=== PATIENT | female | born 1970 | race Caucasian/White ===

== ENCOUNTER 2022-04-15 09:36 | Outpatient (CLI) | payer BC, SELFPAY | END 2022-04-15 09:37 | disposition home or self-care (01) | LOC: OP CLINIC 09:37 | PROVIDERS: PCP Physician Assistant Medical; Visit Provider Surgery | DX: Z12.11 Encounter for screening for malignant neoplasm of colon (principal); K62.1 Rectal polyp; K64.4 Residual hemorrhoidal skin tags; Z83.71 Family history of colonic polyps | CPT/HCPCS: 45385; 88305; 99153; J2250; J3010 ==

== ENCOUNTER 2022-05-14 12:50 | Outpatient (CLI) | payer BC, SELFPAY ==
[2022-05-14 22:22] LABS: Albumin* 4.3 g/dL (3.3-5.0)
[2022-05-14 22:23] LABS: Chloride* 106 mmol/L (96-114); Potassium* 4.4 mmol/L (3.6-5.1); Sodium* 138 mmol/L (135-149)
[2022-05-14 22:25] LABS: Bilirubin Total* 0.4 mg/dL (0.1-1.5); Carbon Dioxide* 25 mmol/L (20-32); Cholesterol* 177 mg/dL (90-199); Creatinine* 0.6 mg/dL (0.5-1.5); Estimated Glomerular Filt Rate 109 ml/min; Total Protein* 6.7 g/dL (6.0-8.3)
[2022-05-14 22:26] LABS: Alanine Aminotransferase* 18 U/L (4-35); Alkaline Phosphatase* 85 U/L (40-150); Aspartate Amino Transferase* 22 U/L (12-35); Blood Urea Nitrogen* 12 mg/dL (7-30); Glucose* 87 mg/dL (60-115); HDL Cholesterol* 54 mg/dL (>=50); LDL Cholesterol Calculated 74 mg/dL (<100); Triglycerides* 246 mg/dL (40-149)
== END 2022-05-14 12:51 | disposition home or self-care (01) ==
PROVIDERS: PCP Physician Assistant Medical; Visit Provider Physician Assistant Medical
DX: R55 Syncope and collapse (principal)
CPT/HCPCS: 80053; 80061; 84443

== ENCOUNTER 2022-05-24 08:10 | Outpatient (CLI) | payer BC, SELFPAY ==
--- NOTE | 2022-05-24 08:15 | CRLHL7_ITS ---
For Patients: As a result of the Century Cures Act, medical imaging exams and procedure reports are released immediately into your electronic medical record. You may view this report before your referring provider. If you have questions, please contact your health care provider. CLINICAL HISTORY: Syncope TECHNIQUE: The carotid circulations and the vertebral arteries in the neck were examined with adhikari-scale ultrasound, color-flow and Doppler spectral analysis. Degrees of stenosis were determined using SRU 2002 Consensus Panel Criteria. FINDINGS: Sonographic images demonstrate mild bilateral atherosclerotic plaque formation without suspicious soft tissue mass. There was antegrade blood flow demonstrated within the vertebral arteries and the subclavian arteries demonstrated a normal triphasic waveform. The spectral Doppler tracings of the common carotid, internal and external carotid arteries demonstrate no abnormal turbulence or spectral broadening. There was no significant elevation of peak systolic blood flow which would indicate a hemodynamically-significant stenosis by SRU criteria. The ICA/CCA peak systolic velocity ratio measures 1.1 on the right and 1.0 on the left. IMPRESSION: Normal carotid ultrasound. Less than 50 percent stenosis of the internal carotid arteries bilaterally. Dictated by iRck Deleon MD @ 05/24/2022 10:34:23 AM (Electronically Signed)
--- NOTE | 2022-05-24 10:00 | CRLHL7_ITS ---
For Patients: As a result of the Century Cures Act, medical imaging exams and procedure reports are released immediately into your electronic medical record. You may view this report before your referring provider. If you have questions, please contact your health care provider. INDICATION: Syncopal episode, right sided weakness COMPARISON: none TECHNIQUE: A CT volumetric acquisition was performed of the brain without IV contrast. Please note that all CT scans at this facility use dose modulation, iterative reconstruction, and/or weight-based dosing when appropriate to reduce radiation dose to as low as reasonably achievable. FINDINGS: The CT images reveal a normal appearance of the cerebral ventricles and basal cisterns. There is no evidence of intracranial hemorrhage, tissue infarction or mass effect. The mastoid air cells and middle ear cavities are clear. The calvarium appears intact. There is normal aeration of the visualized paranasal sinuses. IMPRESSION: Negative head CT. Please note that all CT scans at this facility use dose modulation, iterative reconstruction, and/or weight-based dosing when appropriate to reduce radiation dose to as low as reasonably achievable. Dictated by Rick Deleon MD @ 05/24/2022 10:40:52 AM (Electronically Signed)
== END 2022-05-24 08:11 | disposition home or self-care (01) ==
LOC: US 08:10
PROVIDERS: PCP Physician Assistant Medical; Visit Provider Physician Assistant Medical
DX: R55 Syncope and collapse (principal); I34.0 Nonrheumatic mitral (valve) insufficiency; I31.39 Other pericardial effusion (noninflammatory)
CPT/HCPCS: 70450; 93306; 93880

== ENCOUNTER 2022-07-10 13:45 | Emergency (ER) | payer BC, SELFPAY ==
[2022-07-10 13:53] VITALS: BP 130/59; PULSE 67; RESP 20; TEMP 36.8; O2SAT 95; BMI 35.0
--- NOTE | 2022-07-10 14:22 | CRLHL7_ITS ---
For Patients: As a result of the Century Cures Act, medical imaging exams and procedure reports are released immediately into your electronic medical record. You may view this report before your referring provider. If you have questions, please contact your health care provider. INDICATION: Left flank pain TECHNIQUE: Axial images were obtained from the diaphragm to the pubic symphysis. Reformats were obtained in the coronal and sagittal plane. IV Contrast: None Oral Contrast: None COMPARISON: Abdomen and pelvis CT 03/20/2015 FINDINGS: Lower chest: Unremarkable. Liver: Unremarkable. Normal in size and attenuation. No masses. Gallbladder and bile ducts: Unremarkable. No stones or inflammation. No biliary dilatation. Spleen: Unremarkable. Normal in size without mass. Pancreas: Unremarkable. No mass or inflammation. Adrenal glands: Unremarkable. No nodules. Kidneys: Unremarkable. No masses, stones, or hydronephrosis. Exophytic cyst lateral aspect left kidney measuring 9 millimeters. Vasculature: Unremarkable. GI tract: The stomach is unremarkable. No dilated loops of large or small intestine. Appendix unremarkable. Pelvis: Status post hysterectomy. Phleboliths in the pelvis. Left ovarian cyst measuring 15 millimeters. Bones: Unremarkable for age. IMPRESSION: 1. No evidence of nephrolithiasis or hydronephrosis. 2. No dilated bowel or localized inflammation. 3. Status post hysterectomy with left ovarian cyst measuring 15 millimeters. Please note that all CT scans at this facility use dose modulation, iterative reconstruction, and/or weight-based dosing when appropriate to reduce radiation dose to as low as reasonably achievable. Dictated by Noel Castrejon MD @ 07/10/2022 3:30:15 PM (Electronically Signed)
--- NOTE | 2022-07-10 14:23 | ED.GENADULT ---
HPI - General Adult General Time Seen by Provider: 14: Date Seen: 07/10/22 Chief complaint: Flank Pain Stated complaint: Kidney Stone Time Seen by Provider: 07/10/22 13:50 Source: patient Mode of arrival: ambulatory Limitations: no limitations History of Present Illness HPI narrative: Patient is a 52 year white female has had history of kidney stones before, carries Flomax with her and took some but it has not resolved over a couple of days she has got left flank pain that radiates around her left groin. Typically she passes stones quite rapidly. She has had a couple of scans in the past none recently. Patient denies hematuria denies rigors or chills. She has had pain for several days and just does not seem to be moving or changing. She presents to ER for evaluation of this, feeling similar to kidney stones in the past. No chest pain or breathing problem no fevers rigors dysuria for hematuria. Related Data Home Medications Medication Instructions Recorded Confirmed fexofenadine 180 mg tablet 180 mg feeding tube QDAY 02/28/22 05/14/22 (Allergy Relief (fexofenadine)) tamsulosin 0.4 mg capsule 0.4 mg PO QDAY 02/28/22 05/14/22 latanoprostene bunod 0.024 % eye 1 drp ophthalmic (eye) QDAY 05/14/22 05/14/22 drops (Vyzulta) Previous Rx's Medication Instructions Recorded rosuvastatin 20 mg tablet 20 mg PO QDAY #90 tabs 03/01/22 sertraline 100 mg tablet 200 mg PO QDAY #180 tabs 03/01/22 azithromycin 250 mg tablet 250 mg PO 3XW #36 tabs 04/17/22 triamcinolone acetonide 0.025 % See Rx Instructions .Route 07/02/22 topical cream .COMPLEX #80 grams Allergies Allergy/AdvReac Type Severity Reaction Status Date / Time latex Allergy Intermediate Hives Verified 07/10/22 13:53 Sulfa (Sulfonamide Allergy Intermediate Hives Verified 07/10/22 13:53 Antibiotics) Review of Systems Status of ROS: Reports: 6 or more systems reviewed and unremarkable except as noted in History and below PFSH PFSH Medical History Calculus of kidney Normal stress echocardiography Urticaria Surgical History History of nasal septoplasty History of tonsillectomy History of total vaginal hysterectomy (TVH) History of tubal ligation Family History Mother Coronary artery disease Diabetes Breast cancer Social History Narrative: does not drink or do illicit drugs, former smoker Smoking Status: Never smoker Do you use any of these nicotine containing products: E-Cigarettes Second hand tobacco smoke exposure: Yes How often do you have a drink containing alcohol: never How often do you have six or more drinks on one occasion: Never AUDIT-C Alcohol total score: 0 Non-prescribed substance use: denies use Little interest or pleasure in doing things: not at all Feeling down, depressed, or hopeless: not at all service: No Exam Narrative: Exam Narrative: Objective vital signs as recorded In no apparent distress HEENT remarkable pulse regular abdomen benign soft negative CVA tenderness Extremities are no edema Neurologic nonfocal Const: Vital Signs, click to edit/add: Vital Signs - 24 hr 07/10/22 13:53 Temperature 98.2 F Pulse Rate [Pulse Oximeter] 67 Respiratory Rate 20 Blood Pressure [Le ft Forearm] 130/59 L Pulse Oximetry 95 Oxygen Delivery Me thod Room Air Course Vital Signs Vital signs: Initial Vital Signs Temperature 98.2 F 07/10/22 13:53 Temperature Source Temporal Artery Scan 07/10/22 13:53 Pulse Rate 67 07/10/22 13:53 Pulse Rhythm 07/10/22 13:53 Respiratory Rate 20 07/10/22 13:53 Blood Pressure 130/59 L 07/10/22 13:53 Blood Pressure Mean 82 07/10/22 13:53 Blood Pressure Position Supine 07/10/22 13:53 Pulse Oximetry 95 07/10/22 13:53 Oxygen Delivery Method 07/10/22 13:53 Vital Signs Temperature 98.2 F 07/10/22 13:53 Pulse Rate 67 07/10/22 13:53 Respiratory Rate 20 07/10/22 13:53 Blood Pressure 130/59 L 07/10/22 13:53 Pulse Oximetry 95 07/10/22 13:53 Oxygen Delivery Method 07/10/22 13:53 Temperature 98.2 F 07/10/22 13:53 Pulse Rate 67 07/10/22 13:53 Respiratory Rate 20 07/10/22 13:53 Blood Pressure 130/59 L 07/10/22 13:53 Pulse Oximetry 95 07/10/22 13:53 Oxygen Delivery Method 07/10/22 13:53 Medical Decision Making MDM Narrative Medical decision making narrative: Patient is a 52-year-old female has had kidney stones in the past. She has not had these analyzed in the past. She typically passes in quite rapidly. The patient at this point has not passed out for several days. I think this point a CT scan to check the size of the kidney stone location will be appropriate, rule out other intra-abdominal pathology such as diverticulitis or other issue. Would also give IV Toradol, IV fluid, check labs and urinalysis. Disposition pending CT scan finding and clinical status. Addendum: Patient has a left ovarian cyst, no other findings, no kidney stone. Patient has reassuring urinalysis, labs look reassuring. At this point she certainly could have some discomfort from the ovarian cyst, but she would like to try just Tylenol and Advil at home I think that is reasonable. Would recommend a follow-up ultrasound within the next 4-6 weeks of her left ovarian cyst. She has had a hysterectomy as mention. No other findings on the CT. Return if worsening problems or concerns, she was comfortable plan. Lab Data Labs: Lab Results 07/10/22 07/10/22 07/10/22 Range/Units 14:22 14:45 14:45 WBC 8.28 (4.50-11.00) K/uL RBC 4.72 (4.00-5.20) m/uL Hgb 14.6 (12.0-16.0) gm/dL Hct 41.7 (33.0-51.0) % MCV 88 (80-100) fL MCH 31 (26-34) pg MCHC 35 (32-36) gm/dL RDW Coeff of [place] 11.8 (11.5-15.5) % Plt Count 252 (140-440) K/uL Neut % (Auto) 66.3 (42.0-72.0) % Lymph % (Auto) 25.6 (20-44) % [place] % (Auto) 5.3 (0.0-11.0) % Eos % (Auto) 1.8 (0.0-7.0) % Baso % (Auto) 0.4 (0.0-3.0) % Neut # (Auto) 5.49 (1.7-7.0) K/uL Lymph # (Auto) 2.12 (0.90-2.90) K/uL [place] # (Auto) 0.40 (0.00-0.90) K/UL Eos # (Auto) 0.15 (0.00-0.50) K/uL Baso # (Auto) 0.03 (0.00-0.30) K/uL Sodium 136 (135-149) mmol/L Potassium 4.1 (3.6-5.1) mmol/L Chloride 106 (96-114) mmol/L Carbon Dioxide 24 (20-32) mmol/L BUN 10 (7-30) mg/dL Creatinine 0.5 (0.5-1.5) mg/dL Estimated Creat Clear 132.77 Estimated GFR 113 ml/min Glucose 99 (60-115) mg/dL Calcium 9.1 (8.4-10.6) mg/dL Total Bilirubin 0.7 (0.1-1.5) mg/dL Direct Bilirubin 0.1 (0.0-0.5) mg/dL AST 25 (12-35) U/L ALT 22 (4-35) U/L Alkaline Phosphatase 74 (40-150) U/L C-Reactive Protein 0.8 (0.5-1.0) mg/dL Total Protein 7.4 (6.0-8.3) g/dL Albumin 4.5 (3.3-5.0) g/dL Urine Color Yellow (Yellow) Urine Appearance Clear (Clear) Urine pH 7.0 (5.0-8.5) Ur Specific [place] 1.015 (1.000-1.030) Urine Protein Negative (Negative) Urine Glucose (UA) Negative (Negative) Urine Ketones Negative (Negative) Urine Blood Trace-intact A (Negative) Urine Nitrite Negative (Negative) Urine Bilirubin Negative (Negative) Urine Urobilinogen 0.2 (0.2-1.0) Ur Leukocyte Esterase Negative (Negative) Urine RBC 0-2 (0-2) Urine WBC 0-2 (0-5) Ur Squamous Epith Cells Few (None-Few) Urine Bacteria Few A (None) Discharge Plan Discharge Clinical Impression: Acute left flank pain, Cyst of left ovary Patient Disposition: Home w/ Parent or Adult Condition: Stable Additional Instructions: Light activity, Tylenol Advil as needed, recheck with primary care doctor get a pelvic ultrasound follow-up the left ovarian cyst within the next 4-6 weeks. Activity Level: Light activity Discharge Diet: Regular Prescriptions: No Action sertraline 100 mg tablet 200 mg PO QDAY Qty: 180 3RF rosuvastatin 20 mg tablet 20 mg PO QDAY Qty: 90 1RF tamsulosin 0.4 mg capsule 0.4 mg PO QDAY fexofenadine [Allergy Relief (fexofenadine)] 180 mg tablet 180 mg feeding tube QDAY Vyzulta 0.024 % drops 1 drp ophthalmic (eye) QDAY azithromycin 250 mg tablet 250 mg PO 3XW Qty: 36 2RF triamcinolone acetonide 0.025 % cream See Rx Instructions .ROUTE .COMPLEX Qty: 80 0RF Dose Instruction: APPLY TO AFFECTED AREA TOPICALLY THREE TIMES A DAY Rx Instructions: APPLY TO AFFECTED AREA TOPICALLY THREE TIMES A DAY Follow Up/Referrals: John Bui PA-C [Primary Care Provider] - Stand Alone Forms: [employer] Info Instructions
[2022-07-10] MEDS: KETOROLAC 30 MG/ML inj IVP (14:49)
[2022-07-10 15:01] LABS: Basophils Absolute Auto 0.03 K/uL (0.00-0.30); Basophils Percent Auto 0.4 % (0.0-3.0); Eosinophils Absolute Auto 0.15 K/uL (0.00-0.50); Eosinophils Percent Auto 1.8 % (0.0-7.0); Hematocrit 41.7 % (33.0-51.0); Hemoglobin* 14.6 gm/dL (12.0-16.0); Immature Granulocytes Abs Auto 0.05 K/uL (0.00-0.30); Immature Granulocytes Pct Auto 0.6 %; Lymphocytes Absolute Auto 2.12 K/uL (0.90-2.90); Lymphocytes Percent Auto 25.6 % (20-44); Mean Corpuscular HGB Conc 35 gm/dL (32-36); Mean Corpuscular Hemoglobin 31 pg (26-34); Mean Corpuscular Volume 88 fL (80-100); Monocytes Percent Auto 5.3 % (0.0-11.0); Neutrophils Absolute Auto 5.49 K/uL (1.7-7.0); Neutrophils Percent Auto 66.3 % (42.0-72.0); Platelet Count* 252 K/uL (140-440); RDW Coefficient of Variation % 11.8 % (11.5-15.5); Red Blood Count 4.72 m/uL (4.00-5.20); White Blood Count* 8.28 K/uL (4.50-11.00)
[2022-07-10 15:02] LABS: Appearance Urine Clear (Clear); Bilirubin Urine Negative (Negative); Blood Urine Trace-intact (Negative); Color Urine Yellow (Yellow); Glucose Urine Negative (Negative); Ketones Urine Negative (Negative); Leukocyte Esterase Urine Negative (Negative); Nitrite Urine Negative (Negative); Protein Urine Negative (Negative); Specific Gravity Urine 1.015 (1.000-1.030); Urobilinogen Urine 0.2 (0.2-1.0)
[2022-07-10 15:07] LABS: Slide Review Reflex No
[2022-07-10 15:13] LABS: Albumin* 4.5 g/dL (3.3-5.0); Chloride* 106 mmol/L (96-114)
[2022-07-10 15:14] LABS: Potassium* 4.1 mmol/L (3.6-5.1); Sodium* 136 mmol/L (135-149)
[2022-07-10 15:16] LABS: Alkaline Phosphatase* 74 U/L (40-150); Aspartate Amino Transferase* 25 U/L (12-35); Bilirubin Direct* 0.1 mg/dL (0.0-0.5); Bilirubin Total* 0.7 mg/dL (0.1-1.5); Blood Urea Nitrogen* 10 mg/dL (7-30); Carbon Dioxide* 24 mmol/L (20-32); Creatinine* 0.5 mg/dL (0.5-1.5); Est. Creatinine Clearance* 132.77; Estimated Glomerular Filt Rate 113 ml/min; Total Protein* 7.4 g/dL (6.0-8.3)
[2022-07-10 15:17] LABS: Alanine Aminotransferase* 22 U/L (4-35); Calcium* 9.1 mg/dL (8.4-10.6); Glucose* 99 mg/dL (60-115)
[2022-07-10] MEDS: 0.9 % SODIUM CHLORIDE 1000 ml 1,000 ML 6000 ML IV (15:17)
[2022-07-10 15:19] LABS: C Reactive Protein* 0.8 mg/dL (0.5-1.0)
[2022-07-10 15:26] LABS: Bacteria Urine Few; RBC Urine 0-2 (0-2); Squamous Epithelial Cell Urine Few (None-Few); WBC Urine 0-2 (0-5)
== END 2022-07-10 15:51 | disposition home or self-care (01) ==
PROVIDERS: Emergency Provider Family Medicine; PCP Physician Assistant Medical
DX: R10.9 Unspecified abdominal pain (principal); N83.202 Unspecified ovarian cyst, left side
CPT/HCPCS: 36415; 74176; 80048; 80076; 81001; 85025; 86140; 87086; 96374; 99284; J1885; J7030

== ENCOUNTER 2022-07-12 10:21 | Emergency (ER) | payer BC, SELFPAY ==
[2022-07-12] VITALS (17 sets, daily range): BP systolic 115–139; BP diastolic 59–78; PULSE 50–66; RESP 18; TEMP 37; O2SAT 92–98; BMI 35.0
--- NOTE | 2022-07-12 11:01 | ED_ITS ---
HPI - Back Pain/Injury General Time Seen by Provider: 11:01 Date Seen: 07/12/22 Chief Complaint: Back Injury/Pain Stated Complaint: back pain worse Time Seen by Provider: 07/12/22 11:01 Source: patient, RN notes reviewed and old records reviewed Mode of arrival: ambulatory Limitations: no limitations History of Present Illness HPI Narrative: Claire is a very pleasant 52-year-old female with known history of kidney stones and chronic constipation who comes to the emergency room for evaluation regarding increasing left low back and left lower abdominal pain. Patient notes the onset of pain suddenly on FridayJuly 08. She notes the pain was in the left low back and felt this was remarkably similar to her previous experiences with a kidney stone. She started taking Flomax and expected things to get better. Unfortunately it did not and the pain was then wrapping around to her left lower abdomen and she was seen in the emergency room on FridayJuly 09. At that time no evidence of stone or hydronephrosis noted on CT. However, patient did have a 15 mm left ovarian cyst. Patient was discharged home and has been using ibuprofen at home for pain. She states that yesterday this was not particularly helpful. She notes at 0200 hours this morning she suddenly had and markedly increased pain lasting for approximately 1 hour. She notes the pain was radiating more onto her anterior thigh and she describes this is quite agonizing. She was leaning over the bed but would frequently try to find a position of was comfortable and was unsuccessful. She notes the pain now radiates more down her left leg. She notes moving her left leg increases her discomfort especially when she tries to straighten it out. She denies any nausea or vomiting, fever, blood in her urine which is usually present with kidney stones. She has not had any cough cold congestion or recent COVID exposures. She notes that she has chronic constipation and that is the case today. Related Data Home Medications Medication Instructions Recorded Confirmed fexofenadine 180 mg tablet 180 mg feeding tube QDAY 02/28/22 05/14/22 (Allergy Relief (fexofenadine)) tamsulosin 0.4 mg capsule 0.4 mg PO QDAY 02/28/22 05/14/22 latanoprostene bunod 0.024 % eye 1 drp ophthalmic (eye) QDAY 05/14/22 05/14/22 drops (Vyzulta) Previous Rx's Medication Instructions Recorded rosuvastatin 20 mg tablet 20 mg PO QDAY #90 tabs 03/01/22 sertraline 100 mg tablet 200 mg PO QDAY #180 tabs 03/01/22 azithromycin 250 mg tablet 250 mg PO 3XW #36 tabs 04/17/22 triamcinolone acetonide 0.025 % See Rx Instructions .Route 07/02/22 topical cream .COMPLEX #80 grams Allergies Allergy/AdvReac Type Severity Reaction Status Date / Time latex Allergy Intermediate Hives Verified 07/10/22 13:53 Sulfa (Sulfonamide Allergy Intermediate Hives Verified 07/10/22 13:53 Antibiotics) Review of Systems Status of ROS: Reports: 10 or more systems reviewed and unremarkable except as noted in History and below Narrative: Denies history of addictions. Const: Denies: fever, chills or fatigue ENMT: Denies: throat pain, neck pain or difficulty swallowing Cardio: Denies: chest pain, palpitations, swelling of feet/ankles or shortness of breath with exertion Resp: Denies: shortness of breath, cough or wheezing GI: Reports: abdominal pain; Denies: difficulty swallowing : Denies: painful urination, urinary frequency, urinary urgency or blood in urine Musculo: Reports: back pain; Denies: neck pain Integ/Breast: Denies: rash Neuro: Denies: headache Endo: Denies: excessive urination or fatigue Allergy/Immuno: Denies: wheezing PFSH PFSH Medical History Calculus of kidney Normal stress echocardiography Urticaria Surgical History History of nasal septoplasty History of tonsillectomy History of total vaginal hysterectomy (TVH) History of tubal ligation Family History Mother Coronary artery disease Diabetes Breast cancer Social History Narrative: does not drink or do illicit drugs, former smoker Smoking Status: Never smoker Do you use any of these nicotine containing products: E-Cigarettes Second hand tobacco smoke exposure: Yes How often do you have a drink containing alcohol: never How often do you have six or more drinks on one occasion: Never AUDIT-C Alcohol total score: 0 Non-prescribed substance use: denies use Little interest or pleasure in doing things: not at all Feeling down, depressed, or hopeless: not at all service: No Exam Narrative: Exam Narrative: Alert and oriented. She is not toxic in appearance. Oral cavity with moist mucous membranes. Eyes are bright. Neck is supple without lymphadenopathy Heart with regular rate and rhythm and lungs are clear bilaterally. Abdomen is soft left lower quadrant tenderness is noted on exam. No CVA tenderness with percussion. No evidence of rash or blistering noted on left abdomen. Straight leg raise on the right yields increased discomfort on the left. Patient noted to have pain relief when she flexes at the knee and crosses her left leg on to her right leg as if she was sitting. Straight leg raise on the left does not yield discomfort. No unusual lower extremity edema. Const: Vital Signs, click to edit/add: Vital Signs - 24 hr 07/12/22 10:35 07/12/22 12:10 07/12/22 12:43 Temperature 98.6 F Pulse Rate 55 L Pulse Rate [Right Pulse Oximeter] 66 Respiratory Rate 18 Blood Pressure Blood Pressure [Ri ght Upper Arm] 139/77 Pulse Oximetry 98 98 92 Oxygen Delivery Me thod Room Air 07/12/22 13:00 07/12/22 13:19 07/12/22 13:20 Temperature Pulse Rate 56 L 55 L 54 L Pulse Rate [Right Pulse Oximeter] Respiratory Rate Blood Pressure 115/78 Blood Pressure [Ri ght Upper Arm] Pulse Oximetry 94 94 94 Oxygen Delivery Me thod 07/12/22 13:30 07/12/22 13:32 07/12/22 14:00 Temperature Pulse Rate 52 L 53 L 52 L Pulse Rate [Right Pulse Oximeter] Respiratory Rate Blood Pressure 118/59 L Blood Pressure [Ri ght Upper Arm] Pulse Oximetry 93 96 95 Oxygen Delivery Me thod 07/12/22 14:02 07/12/22 14:30 07/12/22 14:31 Temperature Pulse Rate 56 L 54 L 56 L Pulse Rate [Right Pulse Oximeter] Respiratory Rate Blood Pressure 124/64 120/70 Blood Pressure [Ri ght Upper Arm] Pulse Oximetry 94 96 97 Oxygen Delivery Me thod Documenting provider has reviewed patient's vital signs: yes Course Course Hospital Course: Differential diagnosis includes but is not limited to ureteral colic, ovarian cyst rupture or ovarian torsion, diverticulitis, colitis, constipation, radiculitis, shingles, bowel obstruction, urinary tract infection, musculoskeletal pain. At this time will have IV placed and morphine 4 mg, Zofran 4 mg as well as 1 L of normal saline will be given. Lab studies will include CBC, basic, CRP, urinalysis. We will start with pelvic ultrasound. If unchanged will proceed with further imaging. Patient and her in agreement with our plan. Reevaluation(s) Reevaluation #1: Patient noted uncomfortable ultrasound with discomfort on the left. Results of ultrasound do not show any worrisome findings. Will proceed with CT with IV contrast of the pelvis as well as lumbar CT. Patient noting relief with 2 mg of morphine. This was repeated x1. Reevaluation #2: Lumbar and abdominal CT do not show any acute findings. These results as well as labs discussed with Claire. Vital Signs Vital signs: Initial Vital Signs Temperature 98.6 F 07/12/22 10:35 Temperature Source Temporal Artery Scan 07/12/22 10:35 Pulse Rate 66 07/12/22 10:35 Respiratory Rate 18 07/12/22 10:35 Blood Pressure 139/77 07/12/22 10:35 Blood Pressure Mean 97 07/12/22 10:35 Blood Pressure Position Sitting 07/12/22 10:35 Pulse Oximetry 98 07/12/22 10:35 Oxygen Delivery Method 07/12/22 10:35 Vital Signs Temperature 98.6 F 07/12/22 10:35 Pulse Rate 66 07/12/22 10:35 Respiratory Rate 18 07/12/22 10:35 Blood Pressure 139/77 07/12/22 10:35 Pulse Oximetry 98 07/12/22 10:35 Oxygen Delivery Method 07/12/22 10:35 Temperature 98.6 F 07/12/22 10:35 Pulse Rate 56 L 07/12/22 14:31 Respiratory Rate 18 07/12/22 10:35 Blood Pressure 120/70 07/12/22 14:31 Pulse Oximetry 97 07/12/22 14:31 Oxygen Delivery Method 07/12/22 10:35 MDM - Back Pain/Injury MDM Narrative Medical decision making narrative: 1. Back and abdominal pain-at this time there is no evidence of kidney stone, ovarian torsion, ovarian cyst, fluid in the pelvis, diverticulitis. There was noted to be moderate to severe constipation on the CT. Patient has dealt with this for quite some time. Our plan at this stage is to have her use MiraLax twice daily along with a stool softener. If she has relief with stooling she should continue a stool softener daily. If she does not would recommend MRI of the lumbar spine as it was noted that she had disc protrusions at L1-L2 on the CT. No red flag symptoms today to suggest the need of an emergent MRI. I would do lumbar MRI without contrast as an outpatient. She is referred to her primary MD to order and follow-up on this. Of course, should patient have worsening symptoms would have her return to the emergency room for further evaluation. 2. Disposition-patient will be discharged home. Ibuprofen has not been helping her very much and she declines any narcotic pain medication for home. Would recommend switching to Aleve 2 tablets p.o. b.i.d. q.12 hours is needed. She may use Tylenol as well. She and her voiced understanding. Note we did also speak about shingles as she has had this before. They will continue to monitor for rash. They should return to the ER or seek medical attention for antiviral treatment should blisters or redness occur. Medical Records Attestation: I reviewed the patient's medical records. Lab Data Attestation: I reviewed the patient's lab results. Labs: Lab Results 07/12/22 07/12/22 07/12/22 Range/Units 11:14 11:35 11:35 WBC 9.24 (4.50-11.00) K/uL RBC 4.56 (4.00-5.20) m/uL Hgb 14.1 (12.0-16.0) gm/dL Hct 40.9 (33.0-51.0) % MCV 90 (80-100) fL MCH 31 (26-34) pg MCHC 35 (32-36) gm/dL RDW Coeff of [place] 11.7 (11.5-15.5) % Plt Count 251 (140-440) K/uL Neut % (Auto) 70.5 (42.0-72.0) % Lymph % (Auto) 21.9 (20-44) % [place] % (Auto) 5.4 (0.0-11.0) % Eos % (Auto) 1.9 (0.0-7.0) % Baso % (Auto) 0.2 (0.0-3.0) % Neut # (Auto) 6.51 (1.7-7.0) K/uL Lymph # (Auto) 2.02 (0.90-2.90) K/uL [place] # (Auto) 0.50 (0.00-0.90) K/UL Eos # (Auto) 0.18 (0.00-0.50) K/uL Baso # (Auto) 0.02 (0.00-0.30) K/uL Sodium 138 (135-149) mmol/L Potassium 4.2 (3.6-5.1) mmol/L Chloride 109 (96-114) mmol/L Carbon Dioxide 24 (20-32) mmol/L BUN 9 (7-30) mg/dL Creatinine 0.5 (0.5-1.5) mg/dL Estimated Creat Clear 132.77 Estimated GFR 113 ml/min Glucose 102 (60-115) mg/dL Calcium 9.1 (8.4-10.6) mg/dL C-Reactive Protein 0.6 (0.5-1.0) mg/dL Urine Color Yellow (Yellow) Urine Appearance Clear (Clear) Urine pH 6.0 (5.0-8.5) Ur Specific [place] 1.015 (1.000-1.030) Urine Protein Negative (Negative) Urine Glucose (UA) Negative (Negative) Urine Ketones Negative (Negative) Urine Blood Trace-lysed A (Negative) Urine Nitrite Negative (Negative) Urine Bilirubin Negative (Negative) Urine Urobilinogen 0.2 (0.2-1.0) Ur Leukocyte Esterase Negative (Negative) Urine RBC 0-2 (0-2) Urine WBC 0-2 (0-5) Urine WBC Clumps None (None) Ur Squamous Epith Cells None (None-Few) Urine Bacteria None (None) Imaging Data Pelvic ultrasound: Attestation: I have reviewed the pertinent imaging results. Radiologist's impression: Right ovary: 3.1 x 1.9 x 1.6 centimeters. Normal echogenicity and blood flow without focal lesion. Left ovary: 2.7 x 2.4 x 2.0 centimeters. Normal echogenicity and blood flow without focal lesion. Cul-de-sac: No significant free fluid.? ? IMPRESSION: Unremarkable pelvic ultrasound status post hysterectomy. CT scan - pelvis: Attestation: I have reviewed the pertinent imaging results. My impression: No evidence ureteral stone or diverticulitis. Radiologist's impression: The liver is markedly enlarged with marked hepatic steatosis and hepatomegaly. The portal vein is patent. The gallbladder is unremarkable without evidence of radiopaque calculus. There is no significant common biliary ductal dilatation or abrupt cut off. The spleen is normal in enhancement and size. There is mild thickening of the gastric antrum with mild thickening of the gastric rugal folds. The pancreas is normal in enhancement without significant atrophy. The adrenal glands are unremarkable. The kidneys demonstrate preserved corticomedullary differentiation without evidence of obstructive uropathy. There is moderate stool seen throughout the colon with without evidence of significant diverticulosis. The appendix is unremarkable. There is no significant mesenteric, retroperitoneal, or pelvic sidewall lymph nodes. The aorta is nonaneurysmal.? There is no significant atherosclerotic disease appreciated. The solid pelvic viscera are grossly unremarkable. There is no free fluid or free air. The anterior abdominal wall is intact without significant hernias. The lumbar vertebral body heights are grossly maintained with [id number] degenerative disc disease. There is no significant spondylolisthesis or displaced fracture. Impression: Moderate to severe stool seen throughout the colon without evidence of significant diverticulosis or colonic inflammatory changes. Moderate chronic gastritis changes. Mild to moderate hepatomegaly and hepatic steatosis. Otherwise, no acute intra-abdominal abnormalities are appreciated. Lumbar CT: Attestation: I have reviewed the pertinent imaging results. My impression: Multilevel spondylosis Radiologist's impression: The lumbar vertebral body heights are grossly maintained with minimal endplate Schmorl`s defects. There is mild straightening of the normal lumbar lordosis without evidence of significant spondylolisthesis. There is demonstration of a calcified disc extrusion at the L1-L2 level with mild spinal canal narrowing. Additional small central disc protrusion at the L3-L4 level is appreciated with mild spinal canal effacement. There is moderate facet arthropathy. There is no displaced fracture or dislocation. The paraspinous soft tissues are grossly unremarkable. The visualized aorta is nonaneurysmal. Impression: Moderate degenerative changes of the lumbar spine without acute osseous abnormality. Discharge Plan Discharge Clinical Impression: Abdominal pain Patient Disposition: Home, Self-Care Condition: Improved Additional Instructions: 1. Stool cleanout-suggest MiraLax twice daily until stools are close to liquid. Recommend use of Ducolax stool softener-ensure that it is not the laxative as this will increase your discomfort. If pain is improved continue to use stool softeners daily. 2. If your pain continues please follow-up with your primary provider. I would suggest lumbar MRI without contrast in the evaluation of back and abdominal discomfort. 3. Seek medical attention for increasing pain, fever, onset of new symptoms 4. For now discontinue ibuprofen. Switch to Aleve-2 tablets every 12 hours as needed. You may also use Tylenol 650 mg every 4 hours as needed. Maximum dose of Tylenol in a 24 hour. Is 4000 mg. Prescriptions: No Action sertraline 100 mg tablet 200 mg PO QDAY Qty: 180 3RF rosuvastatin 20 mg tablet 20 mg PO QDAY Qty: 90 1RF tamsulosin 0.4 mg capsule 0.4 mg PO QDAY fexofenadine [Allergy Relief (fexofenadine)] 180 mg tablet 180 mg feeding tube QDAY Vyzulta 0.024 % drops 1 drp ophthalmic (eye) QDAY azithromycin 250 mg tablet 250 mg PO 3XW Qty: 36 2RF triamcinolone acetonide 0.025 % cream See Rx Instructions .ROUTE .COMPLEX Qty: 80 0RF Dose Instruction: APPLY TO AFFECTED AREA TOPICALLY THREE TIMES A DAY Rx Instructions: APPLY TO AFFECTED AREA TOPICALLY THREE TIMES A DAY Follow Up/Referrals: John Bui PA-C [Primary Care Provider] - Stand Alone Forms: SUPR Info Instructions
--- NOTE | 2022-07-12 11:14 | CRLHL7_ITS ---
For Patients: As a result of the Century Cures Act, medical imaging exams and procedure reports are released immediately into your electronic medical record. You may view this report before your referring provider. If you have questions, please contact your health care provider. INDICATION: Left lower quadrant pain TECHNIQUE: Ultrasound pelvis transabdominal and transvaginal for better assessment or to better visualize the endometrium. Real-time sonographic images with spectral and color Doppler imaging of the ovaries were obtained. COMPARISON: None FINDINGS: Uterus: Status posthysterectomy Right ovary: 3.1 x 1.9 x 1.6 centimeters. Normal echogenicity and blood flow without focal lesion. Left ovary: 2.7 x 2.4 x 2.0 centimeters. Normal echogenicity and blood flow without focal lesion. Cul-de-sac: No significant free fluid. IMPRESSION: Unremarkable pelvic ultrasound status post hysterectomy. Dictated by Noel Castrejon MD @ 07/12/2022 12:37:26 PM (Electronically Signed)
[2022-07-12 11:45] LABS: Basophils Absolute Auto 0.02 K/uL (0.00-0.30); Basophils Percent Auto 0.2 % (0.0-3.0); Eosinophils Absolute Auto 0.18 K/uL (0.00-0.50); Eosinophils Percent Auto 1.9 % (0.0-7.0); Hematocrit 40.9 % (33.0-51.0); Hemoglobin* 14.1 gm/dL (12.0-16.0); Immature Granulocytes Abs Auto 0.01 K/uL (0.00-0.30); Immature Granulocytes Pct Auto 0.1 %; Lymphocytes Absolute Auto 2.02 K/uL (0.90-2.90); Lymphocytes Percent Auto 21.9 % (20-44); Mean Corpuscular HGB Conc 35 gm/dL (32-36); Mean Corpuscular Hemoglobin 31 pg (26-34); Mean Corpuscular Volume 90 fL (80-100); Monocytes Percent Auto 5.4 % (0.0-11.0); Neutrophils Absolute Auto 6.51 K/uL (1.7-7.0); Neutrophils Percent Auto 70.5 % (42.0-72.0); Platelet Count* 251 K/uL (140-440); RDW Coefficient of Variation % 11.7 % (11.5-15.5); Red Blood Count 4.56 m/uL (4.00-5.20); White Blood Count* 9.24 K/uL (4.50-11.00)
[2022-07-12 11:56] LABS: Slide Review Reflex No
[2022-07-12 11:57] LABS: Chloride* 109 mmol/L (96-114); Potassium* 4.2 mmol/L (3.6-5.1); Sodium* 138 mmol/L (135-149)
[2022-07-12 11:59] LABS: Appearance Urine Clear (Clear); Bilirubin Urine Negative (Negative); Blood Urine Trace-lysed (Negative); Color Urine Yellow (Yellow); Glucose Urine Negative (Negative); Ketones Urine Negative (Negative); Leukocyte Esterase Urine Negative (Negative); Nitrite Urine Negative (Negative); Protein Urine Negative (Negative); Specific Gravity Urine 1.015 (1.000-1.030); Urobilinogen Urine 0.2 (0.2-1.0)
[2022-07-12 12:00] LABS: Creatinine* 0.5 mg/dL (0.5-1.5); Est. Creatinine Clearance* 132.77; Estimated Glomerular Filt Rate 113 ml/min
[2022-07-12 12:01] LABS: Blood Urea Nitrogen* 9 mg/dL (7-30); Calcium* 9.1 mg/dL (8.4-10.6); Carbon Dioxide* 24 mmol/L (20-32); Glucose* 102 mg/dL (60-115)
[2022-07-12 12:04] LABS: C Reactive Protein* 0.6 mg/dL (0.5-1.0)
[2022-07-12 12:07] LABS: RBC Urine 0-2 (0-2); WBC Urine 0-2 (0-5)
[2022-07-12] MEDS: MORPHINE 4 MG/ML INJ IVP (12:29)
[2022-07-12] MEDS: ONDANSETRON 2 MG/ML inj 4 MG IVP (12:29)
[2022-07-12] MEDS: 0.9 % SODIUM CHLORIDE 1000 ml 1,000 ML IV (12:29)
--- NOTE | 2022-07-12 12:44 | CRLHL7_ITS ---
For Patients: As a result of the Century Cures Act, medical imaging exams and procedure reports are released immediately into your electronic medical record. You may view this report before your referring provider. If you have questions, please contact your health care provider. Indication: Left lower quadrant pain Technique: Volumetric multidetector CT images of the abdomen and pelvis were obtained after the administration of intravenous contrast. 98 cc Isovue 370 low osmolar intravenous contrast Comparison: None available. Findings: The lung bases are clear. The liver is markedly enlarged with marked hepatic steatosis and hepatomegaly. The portal vein is patent. The gallbladder is unremarkable without evidence of radiopaque calculus. There is no significant common biliary ductal dilatation or abrupt cut off. The spleen is normal in enhancement and size. There is mild thickening of the gastric antrum with mild thickening of the gastric rugal folds. The pancreas is normal in enhancement without significant atrophy. The adrenal glands are unremarkable. The kidneys demonstrate preserved corticomedullary differentiation without evidence of obstructive uropathy. There is moderate stool seen throughout the colon with without evidence of significant diverticulosis. The appendix is unremarkable. There is no significant mesenteric, retroperitoneal, or pelvic sidewall lymph nodes. The aorta is nonaneurysmal. There is no significant atherosclerotic disease appreciated. The solid pelvic viscera are grossly unremarkable. There is no free fluid or free air. The anterior abdominal wall is intact without significant hernias. The lumbar vertebral body heights are grossly maintained with [id number] degenerative disc disease. There is no significant spondylolisthesis or displaced fracture. Impression: Moderate to severe stool seen throughout the colon without evidence of significant diverticulosis or colonic inflammatory changes. Moderate chronic gastritis changes. Mild to moderate hepatomegaly and hepatic steatosis. Otherwise, no acute intra-abdominal abnormalities are appreciated. Please note that all CT scans at this facility use dose modulation, iterative reconstruction, and/or weight-based dosing when appropriate to reduce radiation dose to as low as reasonably achievable. Dictated by Jacinto Guevara MD @ 07/12/2022 3:13:13 PM (Electronically Signed)
--- NOTE | 2022-07-12 12:44 | CRLHL7_ITS ---
For Patients: As a result of the Century Cures Act, medical imaging exams and procedure reports are released immediately into your electronic medical record. You may view this report before your referring provider. If you have questions, please contact your health care provider. Indication: Pain radiating into the back and groin Technique: Volumetric multidetector CT images of the lumbar spine were obtained without the administration of IV contrast. Comparison: None available. Findings: The lumbar vertebral body heights are grossly maintained with minimal endplate Schmorl`s defects. There is mild straightening of the normal lumbar lordosis without evidence of significant spondylolisthesis. There is demonstration of a calcified disc extrusion at the L1-L2 level with mild spinal canal narrowing. Additional small central disc protrusion at the L3-L4 level is appreciated with mild spinal canal effacement. There is moderate facet arthropathy. There is no displaced fracture or dislocation. The paraspinous soft tissues are grossly unremarkable. The visualized aorta is nonaneurysmal. Impression: Moderate degenerative changes of the lumbar spine without acute osseous abnormality. Please note that all CT scans at this facility use dose modulation, iterative reconstruction, and/or weight-based dosing when appropriate to reduce radiation dose to as low as reasonably achievable. Dictated by Jacinto Guevara MD @ 07/12/2022 2:28:51 PM (Electronically Signed)
[2022-07-12] MEDS: MORPHINE 2 MG/ML inj IVP (13:55)
== END 2022-07-12 16:00 | disposition home or self-care (01) ==
PROVIDERS: Emergency Provider Family Medicine; PCP Physician Assistant Medical
DX: R10.9 Unspecified abdominal pain (principal)
CPT/HCPCS: 36415; 72131; 74177; 76830; 80048; 81001; 85025; 86140; 93976; 94761; 96374; 96375; 96376; 99284; J2270; J2405; J7030; Q9967

== ENCOUNTER 2022-07-29 12:52 | Outpatient (CLI) | payer BC, SELFPAY ==
--- NOTE | 2022-07-29 13:00 | CRLHL7_ITS ---
For Patients: As a result of the Century Cures Act, medical imaging exams and procedure reports are released immediately into your electronic medical record. You may view this report before your referring provider. If you have questions, please contact your health care provider. INDICATION: Low back pain. TECHNIQUE : Lumbar spine MRI without contrast. The following sequences were obtained: Sagittal T1, T2 weighted and STIR sequences. Axial T1 and T2 weighted sequences. COMPARISON: Lumbar spine CT from 07/12/2022. FINDINGS : Five lumbar type vertebral bodies, with the last fully formed disc space designated as L5-S1. Normal lumbar lordotic curve. No recent compression fracture or marrow replacing process. Lower cord/conus signal is normal. The conus terminates at a normal location. No intradural lesion. No extraspinal soft tissue abnormalities. Discs/Endplates: At L1-2, mild disc height loss and disc desiccation. At L3-4, L4-5 and L5-S1, disc dehydration. T12-L1 and L2-3 discs exhibit normal height and hydration signal. Mild type 1 reactive marrow changes at L3-4 posteriorly. Findings at individual levels as follows: T12-L1: No spinal canal or neural foraminal stenosis. L1-2: 6 millimeter right central protrusion/osteophyte flattens the thecal sac and minimally contacts the traversing right L2 nerve root. No spinal canal or neural foraminal stenosis. L2-3: Minimal disc bulge. No spinal canal or neural foraminal stenosis. L3-4: Mild disc bulge with overlying osteophytic ridging. There is superimposed left far lateral disc extrusion with 11 millimeters cranial migration which impinges the left L3 nerve root. Mild right neural foraminal stenosis. No spinal canal stenosis. L4-5: Tiny left central protrusion flattens the thecal sac. Bilateral low-grade facet arthrosis. No spinal canal or neural foraminal stenosis. L5-S1: Mild disc bulge with overlying osteophytic ridging, asymmetric to the left. Mild bilateral neural foraminal stenosis. No spinal canal stenosis. Imaged SI joints: Minimal bilateral arthrosis. Imaged sacrum: Within normal limits. IMPRESSION: 1. At L3-4, a left far lateral disc extrusion with cranial migration impinges the left L3 nerve root. It is also present on the comparison CT. 2. Scattered spondylotic changes at additional levels without high-grade spinal canal/neural foraminal stenosis or [place] impingement of neural structures. Dictated by Bry Tee MD @ 07/30/2022 1:38:37 PM (Electronically Signed)
== END 2022-07-29 12:53 | disposition home or self-care (01) ==
LOC: MRI 12:52
PROVIDERS: PCP Physician Assistant Medical; Visit Provider Physician Assistant Medical
DX: M54.50 Low back pain, unspecified (principal); M51.86 Other intervertebral disc disorders, lumbar region; M51.26 Other intervertebral disc displacement, lumbar region; G89.29 Other chronic pain
CPT/HCPCS: 72148

== ENCOUNTER 2023-04-02 09:31 | Outpatient (CLI) | payer BC, SELFPAY | END 2023-04-02 09:32 | disposition home or self-care (01) | LOC: NFLDREF 04-03 03:57 | PROVIDERS: PCP Physician Assistant Medical; Referring Provider Physician Assistant Medical; Visit Provider Physician Assistant Medical | DX: Z00.00 Encounter for general adult medical examination without abnormal findings (principal); E78.5 Hyperlipidemia, unspecified; E78.2 Mixed hyperlipidemia; F32.4 Major depressive disorder, single episode, in partial remission; L65.9 Nonscarring hair loss, unspecified | CPT/HCPCS: 80053; 80061; 84443 ==

== ENCOUNTER 2023-08-25 12:56 | Outpatient (CLI) | payer BC, SELFPAY ==
--- NOTE | 2023-08-25 13:20 | MM_ITS ---
Patient: THANH CARR Facility:?[facility] Patient ID:?[id number] Site Patient ID:?[id number]. Site :?1970 Study:?XRay-Breast Bilateral 3D W/CAD-08/25/2023 2:11:16 PM Ordering Physician:Emerson Final Report: BILATERAL SCREENING MAMMOGRAM WITH COMPUTER-AIDED DETECTION AND TOMOSYNTHESIS TECHNIQUE: CC and MLO views were obtained. These mammographic images have been obtained using full-field digital technique. These mammographic images were interpreted with the benefit of computer-aided detection. Breast Tomosynthesis was used in this interpretation. COMPARISON FILM: 10/12/21, 08/14/20, 05/29/19. FINDINGS: There are scattered areas of fibroglandular density. IMPRESSION: There is no radiographic evidence for malignancy. ASSESSMENT: BI-RADS Category 1: Negative RECOMMENDATION: Routine screening mammogram in 1 year. A lay language report of this examination will be provided to the patient. Rick Deleon M.D. Diagnostic Radiologist [email or web address] DSM/sp R& Transcribed: 1:42 p.m. SP/Dictated by: Rick Deleon MD @ 08/26/2023 9:07:00 AM Signed by:?Rick Deleon MD @08/26/2023 1:45:43 PM (Electronic Signature)
== END 2023-08-25 12:57 | disposition home or self-care (01) ==
LOC: MAMMO 12:56
PROVIDERS: PCP Physician Assistant Medical; Visit Provider Physician Assistant Medical
DX: Z12.31 Encounter for screening mammogram for malignant neoplasm of breast (principal)
CPT/HCPCS: 77063; 77067

== ENCOUNTER 2024-04-07 08:35 | Outpatient (CLI) | payer BC, SELFPAY ==
--- OUTSIDE RECORDS SUMMARY | 2024-04-07 15:43 | XMS_ITS | Referral Summary ---
Author Organization [facility] Address [address] [place] [address] Care Team Providers Care Certified Fire Investigator Name Role Phone Clinic, [facility] Primary Care Provider Allergies Active Allergy Reactions Criticality Noted Date Comments Latex Rash Low 04/15/2011 Sulfa Antibiotics Low 04/16/2011 Medications rosuvastatin (CRESTOR) 10 MG tablet Take 20 mg by mouth At Bedtime Active aspirin 81 MG tablet Take 1 tablet by mouth daily. Active multivitamin, therapeutic with minerals (THERA-VIT-M) TABS Take 1 tablet by mouth daily Active omeprazole (PRILOSEC) 20 MG CR capsule Take 20 mg by mouth daily as needed Active sertraline (ZOLOFT) 100 MG tablet Take 200 mg by mouth daily Active Cholecalciferol (VITAMIN D-3) 5000 UNITS TABS Take 5,000 Units by mouth daily Active bimatoprost (LUMIGAN) 0.01 % SOLN Place 1 drop into both eyes At Bedtime Active Active Problems Problem Noted Date Diagnosed Date Hyperthyroidism 09/18/2015 Resolved Problems Problem Noted Date Diagnosed Date Resolved Date Acute chest pain 08/14/2017 08/14/2017 Immunizations Name Administration Dates Next Due TDAP (Adacel,Boostrix) 04/07/2015 Social History Tobacco Use Types Packs/Day Years Used Date Smoking Tobacco: Former Cigarettes 0.5 25 Smokeless Tobacco: Never Alcohol Use Standard Drinks/Week Comments Yes 0 (1 standard drink = 0.6 oz pur e alcohol) rarely Adolescent Education Answer Date Record ed Getting School Help Needed Not on file 03/09 Comments No Sex and Gender Information Value Date Recorded Sex Assigned at Not on file Legal Sex Female 3:25 AM GARDE MANGER Gender Identity Not on file Sexual Orientation Not on file Last Filed Vital Signs Vital Sign Reading Time Taken Comments Blood Pressure 119/69 01/20/2020 10:15 PM CDT Pulse 50 01/20/2020 10:15 PM CDT Temperature 36.9 ??C (98.5 ??F) 01/20/2020 6:31 PM CD T Respiratory Rate 17 01/20/2020 10:15 PM CDT Oxygen Saturation 96% 01/20/2020 10:15 PM CDT Inhaled Oxygen Concentration - - Weight 104.3 kg (230 lb) 05/08/2018 2:00 AM GARDE MANGER Height 172.7 cm (5' 8) 05/08/2018 2:00 AM GARDE MANGER Body Mass Index 34.97 05/08/2018 2:00 AM GARDE MANGER Plan of Treatment Not on file Insurance BCBS OUT OF STATE Advance Directives For more information, please contact: [phone] * Full Code (Latest Code Status on File) Date Activated Date Inactivated Comments 08/14/2017 8:24 AM 08/14/2017 5:55 PM * Full Code Date Activated Date Inactivated Comments 07/01/2013 10:05 AM 08/14/2017 8:24 AM Care Teams Certified Fire Investigator Relationship Specialty Start Date End Date Clinic, [address] [address] PCP - General 08/14/17
--- OUTSIDE RECORDS SUMMARY | 2024-04-07 15:43 | XMS_ITS | Clinical Summary ---
Author Organization [facility] Address [place], [place] [address] Care Team Providers Care Drum Dyeing Machine Operator Name Role Phone John Bui Zane FUCHS Primary Care Provider [phone] Allergies No known active allergies Medications Medication Sig Dispensed Refills Start Date End Date Status LORazepam (ATIVAN) 1 mg tablet Take 1 tablet by mouth 2 times daily if needed for Anxiety and Other (Specify) (Agitation.). 30 tablet 0 01/21/2011 Active divalproex EXTENDED release (DEPAKOTE ER) 500 mg tablet Take 2 tablets by mouth at bedtime. 60 tablet 0 01/21/2011 Active rosuvastatin (CRESTOR) 20 mg tablet Take 1 tablet by mouth at bedtime. 30 tablet 0 01/21/2011 Active QUEtiapine (SEROQUEL) 100 mg tablet Take 2 tablets by mouth at bedtime. 60 tablet 0 01/21/2011 Active QUEtiapine (SEROQUEL) 50 mg tablet Take 1 tablet by mouth 2 times daily. 60 tablet 0 01/21/2011 Active divalproex EXTENDED release (DEPAKOTE ER) 250 mg tablet Take 1 tablet by mouth at bedtime. Total HS dose 1250 mg. 30 tablet 0 01/21/2011 Active Family History Medical History Relation Name Comments Cancer-breast Mother Relation Name Status Comments Mother Social History Tobacco Use Types Packs/Day Years Used Date Smoking Tobacco: Never Assessed Sex and Gender Information Value Date Recorded Sex Assigned at Not on file Gender Identity Not on file Sexual Orientation Not on file Obstetrics History Last Filed Vital Signs Vital Sign Reading Time Taken Comments Blood Pressure 121/64 01/21/2011 9:00 AM CDT Pulse 95 01/21/2011 9:00 AM CDT Temperature 36.7 ??C (98 ??F) 01/21/2011 9:00 AM CDT Respiratory Rate 18 01/20/2011 10:00 AM CDT Oxygen Saturation 97% 01/16/2011 11:00 AM CDT Inhaled Oxygen Concentration - - Weight 96.2 kg (212 lb) 01/19/2011 9:00 PM CDT Height 172.7 cm (5' 8) 01/16/2011 12:00 PM CDT Body Mass Index 32.23 01/16/2011 12:00 PM CDT Plan of Treatment Health Maintenance Due Date Last Done Comments Tdap 1981 Depression screening for age 12+ 1982 HIV for age 15-65 1985 BMI (ht and wt on same day) for age 18+ 1988 Hepatitis C screening for ag e 18-79 1988 Tetanus booster 1990 Pap test for age 21-65 1991 Colonoscopy through age 75 2015 Lipids for age 45-75 2015 Mammogram for age 45-75 2015 04/14/20 13, 12/14/2010, 12/09/2007 Zoster (shingles) series for age 50+ (1 of 2) 2020 COVID-19 vaccine series (2023- season) 2024 06/26/2021, 09/19/2020, 08/29/2020 Influenza for age 50-64 02/08/2024 Pneumococcal series for age 6-64 Aged Out No longer eligible b ased on patient's age to complete this topic Procedures Procedure Name Priority Date/Time Associated Diagnosis Comments XR MAMMO BILAT SCREEN FFDM (IA) Routine 04/14/2013 9:36 AM FABRICATION SPECIALIST Other screening mammogram from Last 3 Months or Most Recently Relevant to Health Maintenance Results * XR MAMMO BILAT SCREEN FFDM (04/14/2013 9:36 AM FABRICATION SPECIALIST) Anatomical Region Laterality Modality BREASTS, Breast Left, Breast Right Bilateral Mammography Impressions 04/14/2013 12:33 PM FABRICATION SPECIALIST ??There is no radiographic evidence for malignancy. ??Recommend annual mammograms. A lay language report of this examination will be provided to the patient. MAMMOGRAM ASSESSMENT: ??ACR 2 Benign Narrative 04/14/2013 12:33 PM FABRICATION SPECIALIST XR MAMMO BILAT SCREEN FFDM [G0202.0] CLINICAL HISTORY: ??This is an asymptomatic 42 y.o. patient. INDICATION FOR EXAM: Mammogram Screening. TECHNIQUE: CC & MLO views were obtained. ??This digital study was evaluated with the assistance of Computer-Aided Detection. ?? COMPARISON FILMS: Yes 12/14/10 [facility] 12/09/07 [facility] FINDINGS: ??Mammographically, the breast tissue is almost entirely fat (<25% glandular). ??No suspicious masses or microcalcifications. ??Benign appearing calcifications within left breast. Procedure Note Avery Ojeda DO - 04/14/2013 XR MAMMO BILAT SCREEN FFDM [G0202.0] CLINICAL HISTORY: This is an asymptomatic 42 y.o. patient. INDICATION FOR EXAM: Mammogram Screening. TECHNIQUE: CC & MLO views were obtained. This digital study was evaluatedwith the assistance of Computer-Aided Detection. COMPARISON FILMS: Yes 12/14/10 [facility] 12/09/07 [facility] FINDINGS: Mammographically, the breast tissue is almost entirely fat(<25% glandular). No suspicious masses or microcalcifications. Benignappearing calcifications within left breast. IMPRESSION: There is no radiographic evidence for malignancy. Recommendannual mammograms. A lay language report of this examination will be provided to the patient. MAMMOGRAM ASSESSMENT: ACR 2 Benign Dusty Kyle MD MAMMO from Last 3 Months or Most Recently Relevant to Health Maintenance Advance Directives * Full Code (Latest Code Status on File) Date Activated Date Inactivated Comments 01/16/2011 1:45 PM 01/21/2011 1:24 PM Care Teams Drum Dyeing Machine Operator Relationship Specialty Start Date End Date John Bui PA-C [address] [place] [id number] PCP - General Physician Criminal Justice Faculty 05/24/22
--- OUTSIDE RECORDS SUMMARY | 2024-04-07 15:43 | XMS_ITS | Clinical Summary ---
Author Organization [facility] Address [address] [place] [address] Care Team Providers Care Job Lithographer Name Role Phone John Bui PA-C Primary Care Provider [phone] Source Comments You are receiving this document as you are listed as the primary care provider,follow-up provider, or the patient has been referred to you for consultation.This is in compliance with the Medicare and[facility] Hospital[facility] EHR Incentive Program,which states Providers who transition their patient to another setting of careor provider of care or refers their patient to another provider of care shouldprovide summary care record for each transition of care or referral. [facility] Allergies Active Allergy Reactions Criticality Noted Date Comments Latex Rash Low 04/15/2011 Sulfa Antibiotics Rash Low 04/16/2011 Medications Medication Sig Dispensed Refills Start Date End Date Status fexofenadine (POLINA) 180 MG tablet Take 1 Tablet (180 mg) by mouth two times a day. (PATIENT TAKING DIFFERENTLY: The patient is taking 180mg once daily in the evening) Active rosuvastatin (CRESTOR) 20 MG tablet Take 1 Tablet (20 mg) by mouth every evening. Active Latanoprostene Bunod 0.024 % SOLN Place 1 Drop into both eyes every evening. Active BIOTIN OR Take 1 Tablet by mouth daily. Active Multiple Vitamin (MULTIVITAMINS OR) Take 1 Tablet by mouth daily. Active aspirin EC 81 MG enteric coated tablet Take 1 Tablet (81 mg) by mouth every evening. Active OLANZapine (ZYPREXA) 15 MG tabletIndications:moo d Take 1 Tablet (15 mg) by mouth daily at bedtime. Indications: mood 30 Tablet 08/21/2023 Active OLANZapine (ZYPREXA) 5 MG tabletIndications:moo d Take 1 Tablet (5 mg) by mouth at bedtime as needed (insomnia or agitation). Indications: mood 30 Tablet 08/21/2023 Active Active Problems Problem Noted Date Diagnosed Date Bipolar 1 disorder 08/18/2023 Immunizations Name Administration Dates Next Due Tdap 08/17/2023 Social History Tobacco Use Types Packs/Day Years Used Date Smoking Tobacco: Never Smokeless Tobacco: Never Tobacco Cessation:Counseling Given: No Alcohol Use Standard Drinks/Week Comments Never 0 (1 standard drink = 0.6 oz pur e alcohol) [facility] Utilities Answer Date Recorded In the past 12 months has e [employer], gas, oil, or water company threatened to shut off services in your home? No 08/17/2023 Humiliation, Afraid, Rape, and Kick questionnair e Answer Date Recorded Fear of Current or Ex-Partner Not on file Emotionally Abused Not on file 08/17/2023 Within the last year, have y ou been kicked, hit, slapped, or otherwise physically hurt by your partner or ex-partner? No 08/17/2023 Within the last year, have y ou been raped or forced to have any kind of sexual activity by your partner or ex-partner? No 08/17/2023 Hunger Vital Sign Answer Date Recorded Within the past 12 months, y ou worried that your food would run out before you got the money to buy more. Never true 08/17/19 24 Within the past 12 months, t he food you bought just didn't last and you didn't have money to get more. Never true 08/17/2023 PRAPARE - Transportation Answer Date Re corded In the past 12 months, has l ack of transportation kept you from medical appointments or from getting medications? No 08/07 In the past 12 months, has l ack of transportation kept you from meetings, work, or from getting things needed for daily living? No 08/17/2023 Housing Stability Vital Sign Answer Rush e Recorded In the last 12 months, was t here a time when you were not able to pay the mortgage or rent on time? No 08/17/2023 Number of Places Lived in the Last Year Not on f ile 08/17/2023 In the last 12 months, was t here a time when you did not have a steady place to sleep or slept in a senior living (including now)? No 08/17/2023 Sex and Gender Information Value Date Recorded Sex Assigned at Not on file Gender Identity Not on file Sexual Orientation Not on file Last Filed Vital Signs Vital Sign Reading Time Taken Comments Blood Pressure 138/58 08/20/2023 4:00 PM CDT Pulse 65 08/20/2023 4:00 PM CDT Temperature 36.4 ??C (97.6 ??F) 08/20/2023 4:00 PM CD T Respiratory Rate 16 08/20/2023 4:00 PM CDT Oxygen Saturation 97% 08/20/2023 4:00 PM CDT Inhaled Oxygen Concentration - - Weight 101.8 kg (224 lb 6.4 oz) 08/17/2023 4:28 PM CDT Height 171 cm (5' 7.32) 08/17/2023 4:28 PM CDT Body Mass Index 34.81 08/17/2023 4:28 PM CDT Plan of Treatment Health Maintenance Due Date Last Done Comments Cervical Cancer Screening Due 1970 Colon Cancer Screening Plan Due 1970 Diabetes Screening- (based on age and BMI) 1970 Hep C Screening (Preventive Services) 1970 HIV Screening (Preventive Services) 1986 Adult Preventive Visit 1988 HepB (1) 1989 Mammogram 04/14/2014 04/14/2013 Cholesterol 2015 Zoster/Shingles (1 of 2) 2020 COVID-19 Vaccine ( season) 2024 06/26/2021, 09/19/2020, 08/29/2020 Influenza (#1) 2024 03/19/2021, 09/2018, 04/09/2017, Additional history exists DTaP/Tdap/Td (3 - Tdap) 08/16/2033 08/17/2023, 04/07 HepA Aged Out No longer eligi ble based on patient's age to complete this topic Hib Aged Out No longer eligi ble based on patient's age to complete this topic IPV (Polio) Aged Out No longer eligi ble based on patient's age to complete this topic RSV Aged Out No longer eligi ble based on patient's age to complete this topic MCV4 Aged Out No longer eligi ble based on patient's age to complete this topic Pneumococcal Aged Out No longer eligi ble based on patient's age to complete this topic Advance Directives * Full Code (Latest Code Status on File) Date Activated Date Inactivated Comments 08/17/2023 5:07 PM 08/21/2023 2:14 PM Care Teams Job Lithographer Relationship Specialty Start Date End Date John Bui PA-C [address] [place] [address] PCP - General Physician Thresher [employer] 08/17/23
--- OUTSIDE RECORDS SUMMARY | 2024-04-07 15:43 | XMS_ITS | Clinical Summary ---
Author Organization [facility] Address [address] [place] [address] Care Team Providers Care Tip Scourer Name Role Phone Clinic, [facility] Primary Care Provider Allergies Active Allergy Reactions [...] Administration Dates Next Due TDAP (Adacel,Boostrix) 04/07/2015 Family History Medical History Relation Comments Coronary Artery Disease Brother [facility] Breast Cancer Mother Coronary Artery Disease Mother heart at [facility] Diabetes Mother type 2 Thyroid Disease Son Relation Status Comments Brother Mother Son Social History Tobacco Use Types Packs/Day Years [...] on file Legal Sex Female 3:25 AM MATERIALS ENGINEER Gender Identity Not on file Sexual Orientation [...] 104.3 kg (230 lb) 05/08/2018 2:00 AM MATERIALS ENGINEER Height 172.7 cm (5' 8) 05/08/2018 2:00 AM MATERIALS ENGINEER Body Mass Index 34.97 05/08/2018 2:00 AM MATERIALS ENGINEER Plan of Treatment Not on file Insurance BCBS OUT OF STATE Advance Directives For more information, please contact: [phone] * Full Code (Latest Code Status on File) Date Activated Date Inactivated Comments 08/14/2017 8:24 AM 08/14/2017 5:55 PM * Full Code Date Activated Date Inactivated Comments 07/01/2013 10:05 AM 08/14/2017 8:24 AM Care Teams Tip Scourer Relationship Specialty Start Date End Date [facility], [place] [address] PCP - General 08/14/17
== END 2024-04-07 08:36 | disposition home or self-care (01) ==
LOC: NFLDREF 15:42
PROVIDERS: PCP Physician Assistant Medical; Referring Provider Physician Assistant Medical; Visit Provider Physician Assistant Medical
DX: Z00.00 Encounter for general adult medical examination without abnormal findings (principal); E78.2 Mixed hyperlipidemia; E78.00 Pure hypercholesterolemia, unspecified; F32.4 Major depressive disorder, single episode, in partial remission
CPT/HCPCS: 80053; 80061; 84443

== ENCOUNTER 2024-06-16 08:04 | Outpatient (CLI) | payer BC, SELFPAY ==
--- NOTE | 2024-06-16 08:15 | MR_ITS ---
[facility] [address] [facility] [address] Phone:?[phone] Fax:?[phone] Referring Physician Information: Sharath Carty M.D. [address] [facility] [address] Phone:?[phone] Fax:?[phone] Patient:Arianna Knox D.O.B:?1970 Sex:?Female Phone:?[phone] [facility] MRN:?[id number] Exam Date:?06/16/2024 EXAM: MRI of the LEFT ANKLE, without contrast CLINICAL: Evaluate for posterior tibialis tendon tear. COMPARISONS: X-rays dated 01/22/2024. TECHNICAL: Multiplanar multisequence MRI of the left ankle was obtained. SEDATION: None. CONTRAST: None. FINDINGS: Achilles tendon: No tendinopathy or tear. No retrocalcaneal bursitis. Plantar fascia: Unremarkable. Tarsal tunnel: No masses identified. Sinus Tarsi:?There is increased scarring/synovitis within the sinus Tarsi. Ligaments: Anterior talofibular: Mild irregularity of the ligament may reflect sequelae of prior sprain injury, without disruption. Calcaneofibular: No injury. Posterior talofibular: No injury. Syndesmotic:?The anterior inferior and posterior inferior tibiofibular ligaments are intact. Deltoid: The deep and superficial components of the deltoid ligament are intact. Spring: Intact. Bifurcate and calcaneocuboid: Intact. Flexor tendons: Posterior tibial: There is moderate fluid about the tendon as it courses along the posterior medial distal tibia on axial series 4 image 3-7 with mild fluid about the remainder of the tendon. There is mild partial tearing of the distal posterior tibialis tendon at the attachment to the os navicularis on axial series 4 image 22 and sagittal series 5 image 7. Flexor digitorum longus: Minimal fluid about the tendon. No significant tendinosis or tendon tear. Flexor hallucis longus: Normal. Peroneus brevis and longus: Minimal fluid about the tendons. No significant tendinosis, tendon tear or displacement. Extensor tendons: Tibialis anterior: Mild fluid about the distal tendon. No significant tendinosis or tendon tear. Extensor hallucis longus: Normal. Extensor digitorum longus: Normal. Joints/Osseous structures: Type II os navicularis is present with associated bone marrow edema within the ossicle and with mild marrow edema involving the adjacent medial navicular about the synchondrosis as seen on axial series 4 images 23-24. No evidence of acute fracture or dislocation. Os trigonum is present. Mild changes of arthrosis are seen to involve the first and second TMT joints. IMPRESSION: 1. Findings which can be seen in patients with os navicularis syndrome. 2. Mild to moderate fluid about the posterior tibialis tendon with mild partial tearing of the distal posterior tibialis tendon at the attachment to the os navicularis. 3. Mild irregularity of the anterior talofibular ligament may reflect sequelae of prior sprain injury. 4. Increased scar/synovitis within the sinus Tarsi which can be seen in patients with sinus Tarsi syndrome. JCZ Electronically signed on 06/16/2024 10:34:00 AM by Cisco Hamilton D.O.
== END 2024-06-16 08:05 | disposition home or self-care (01) ==
LOC: MRI 08:05
PROVIDERS: PCP Physician Assistant Medical; Visit Provider Orthopaedic Surgery Sports Medicine
DX: M66.872 Spontaneous rupture of other tendons, left ankle and foot (principal); S96.812A Strain of other specified muscles and tendons at ankle and foot level, left foot, initial encounter; S93.492A Sprain of other ligament of left ankle, initial encounter
CPT/HCPCS: 73721

== ENCOUNTER 2024-09-27 13:11 | Outpatient (CLI) | payer BC, SELFPAY ==
--- NOTE | 2024-09-27 13:20 | CRLHL7_ITS ---
For Patients: As a result of the Century Cures Act, medical imaging exams and procedure reports are released immediately into your electronic medical record. You may view this report before your referring provider. If you have questions, please contact your health care provider. INDICATION: BILATERAL SCREENING MAMMOGRAM, ASYMPTOMATIC 54 Y/O FEMALE COMPARISON: 08/25/23, 10/12/21, 08/14/20 TECHNIQUE: CC and MLO views were obtained. These mammographic images have been obtained using full-field digital technique. These mammographic images were interpreted with the benefit of computer aided detection and tomosynthesis. BREAST COMPOSITION: There are scattered areas of fibroglandular density. FINDINGS: No suspicious findings. ASSESSMENT: BI-RADS 1 Negative RECOMMENDATION: Annual screening mammogram. A lay language report of this examination will be provided to the patient. Dictated by: Rick Deleon MD @ 09/28/2024 11:08:24 (Electronically Signed)
== END 2024-09-27 13:12 | disposition home or self-care (01) ==
LOC: MAMMO 13:12
PROVIDERS: PCP Physician Assistant Medical; Visit Provider Physician Assistant Medical
DX: Z12.31 Encounter for screening mammogram for malignant neoplasm of breast (principal)
CPT/HCPCS: 77063; 77067

== ENCOUNTER 2025-01-25 08:58 | Outpatient (CLI) | payer BC, SELFPAY ==
[2025-01-25 13:59] LABS: Hematocrit 40.2 % (33.0-51.0); Hemoglobin* 13.5 gm/dL (12.0-16.0); Immature Granulocytes Abs Auto 0.00 K/uL (0.00-0.30); Immature Granulocytes Pct Auto 0.0 %; Lymphocytes Absolute Auto 2.59 K/uL (0.90-2.90); Mean Corpuscular HGB Conc 34 gm/dL (32-36); Mean Corpuscular Hemoglobin 31 pg (26-34); Mean Corpuscular Volume 91 fL (80-100); RDW Coefficient of Variation % 12.6 % (11.5-15.5); Red Blood Count 4.43 m/uL (4.00-5.20); White Blood Count* 7.55 K/uL (4.50-11.00)
[2025-01-25 14:03] LABS: Iron* 85 ug/dL (37-170); Slide Review Reflex No
[2025-01-25 14:04] LABS: Albumin* 4.3 g/dL (3.3-5.0); Chloride* 108 mmol/L (96-114); Sodium* 138 mmol/L (135-149)
[2025-01-25 14:05] LABS: Potassium* 4.2 mmol/L (3.6-5.1)
[2025-01-25 14:07] LABS: Alanine Aminotransferase* 15 U/L (4-35); Anion Gap 6 mEq/L (7-15); Aspartate Amino Transferase* 24 U/L (12-35); Blood Urea Nitrogen* 13 mg/dL (7-30); Carbon Dioxide* 24 mmol/L (20-32); Creatinine* 0.6 mg/dL (0.5-1.5); Estimated Glomerular Filt Rate 107 ml/min; Total Protein* 6.6 g/dL (6.0-8.3)
[2025-01-25 14:08] LABS: Alkaline Phosphatase* 73 U/L (40-150); Bilirubin Direct* 0.1 mg/dL (0.0-0.5); Bilirubin Total* 0.6 mg/dL (0.1-1.5); Calcium* 9.5 mg/dL (8.4-10.6); Glucose* 97 mg/dL (60-115)
[2025-01-25 14:13] LABS: Percent Iron Saturation 28 % (20-50); Total Iron Binding Capacity 305 ug/dL (265-497)
[2025-01-25 14:34] LABS: TSH With Reflex to FT4* 0.678 uIU/mL (0.270-4.200)
[2025-01-25 15:04] LABS: HDL Cholesterol* 59 mg/dL (>=50)
[2025-01-25 15:08] LABS: Cholesterol* 190 mg/dL (90-199); Triglycerides* 151 mg/dL (40-149)
[2025-01-26 20:48] LABS: Follicle Stimulating Hormone 74.8 IU/L
[2025-01-26 21:36] LABS: Estradiol Premenol Female <20 pg/mL
[2025-01-27 05:52] LABS: DHEAS 54 ug/dL (35-256)
[2025-01-28 16:42] LABS: Progesterone, HPLC-MS/MS <0.10 ng/mL
[2025-01-31 18:14] LABS: Testosterone, Free LC-MS/MS 5.5 pg/mL (0.6-3.8); Testosterone, LC-MS/MS 29 ng/dL (9-55)
== END 2025-01-25 08:59 | disposition home or self-care (01) ==
LOC: NPINS 08:58
PROVIDERS: PCP Physician Assistant Medical; Visit Provider Nurse Practitioner Family
DX: L65.9 Nonscarring hair loss, unspecified (principal); R68.82 Decreased libido
CPT/HCPCS: 80048; 80061; 80076; 82627; 82670; 83001; 83036; 83540; 83550; 84144; 84270; 84402; 84403; 84443; 85025